=== PATIENT | female | born 1950 | race Caucasian/White ===

== ENCOUNTER → 2022-01-18 | Outpatient (CLI) | payer MEDICARE, SELFPAY ==
--- NOTE | 2022-01-18 | ASPSI_PTH ---
PATIENT: MOLLY BERGMAN LOC: [facility] U#:[id number] AGE/SX: 71/F ROOM: RE01/18/[address]: Dr. Melissa Ordonez MD : 1950 BED: DIS: 01/18/2022 SPEC #: [id number] RECD: 01/19/22 11:50 STATUS: JUSTIN OLEARY #: [id number] ARNOLDO: 01/18/22 00:[address]: Melissa Ordonez DEPT: CYTOLOGY RECD BY: Willi Shabazz Tissues: A - Thyroid gland, NOS B - Thyroid gland, NOS Procedures: Surgery Specimen Level IV Cytospin Fluid Cytology Other HEADER OPERATION: Fine needle aspiration left thyroid PRE-OP DIAGNOSIS: Abnormal ultrasound TISSUE SUBMITTED: A ? FNA left thyroid nodule fluid, B - FNA left thyroid nodule x6 slides DIAGNOSIS CYTOLOGY A. Fine needle aspiration, left thyroid nodule fluid (cytospin and cell block): Negative for malignant cells. See comment. B. Fine needle aspiration, left thyroid nodule (smears): Adequate for evaluation. Negative, consistent with benign follicular nodule/colloid nodule ([place] Category II). Chronic inflammation. See comment. AM:arash 01/20/2022 COMMENT A. The specimen contains rare benign follicular cells and blood. B. The [place] System for thyroid diagnostic categorization was used in the evaluation of this case. The specimen is adequate for evaluation. CYTOLOGY STUDY Slides are reviewed. CYTOLOGY GROSS A - Received is 20 ml of brown cloudy fluid labeled with the patient's name and and designated per the requisition as left thyroid. Submitted for cytology preparation including cell block. B - Received are six smears labeled with the patient's name and designated per the requisition as left thyroid. Submitted for staining. / arash 01/19/2022 TC:3 CPT: 07910 x2, 01291
== END | disposition home or self-care (01) ==
PROVIDERS: Visit Provider Surgery
DX: R93.89 Abnormal findings on diagnostic imaging of other specified body structures (principal); E04.1 Nontoxic single thyroid nodule
CPT/HCPCS: 88108; 88161; 88305

== ENCOUNTER → 2022-12-13 | Outpatient (CLI) | payer MEDICARE, OTHER, SELFPAY ==
--- NOTE | 2022-12-13 | FLU_PTH ---
PATIENT: MOLLY BERGMAN LOC: [facility] U#:[id number] AGE/SX: 72/F ROOM: RE12/13/[address]: Dr. Melissa Ordonez MD : 1950 BED: DIS: 12/13/2022 SPEC #: [id number] RECD: 12/13/22 17:08 STATUS: JUSTIN REQ #: [id number] ARNOLDO: 12/13/22 00:[address]: Melissa Ordonez DEPT: CYTOLOGY RECD BY: Usha Wan ENTERED: 12/14/22 09:23 SP TYPE: Fluid OTHR DR: Dr. Nadja Penny MD Tissues: A - Thyroid gland, NOS B - Thyroid gland, NOS Procedures: Special Stain Group II Surgery Specimen Level IV Cytospin Fluid Cytology Other HEADER OPERATION: Fine needle aspiration right thyroid PRE-OP DIAGNOSIS: Thyroid nodule TISSUE SUBMITTED: A - Right thyroid fluid, B - Right thyroid x6 slides DIAGNOSIS CYTOLOGY A. Right thyroid fluid, fine needle aspiration (cytospin and cell block): Negative for malignant cells. See comment. B. Right thyroid, fine needle aspiration (smears): Consistent with chronic lymphocytic ([place]'s) thyroiditis in the proper clinical context ([place] Category II). Adequate for evaluation. See comment. SJ:rg 12/15/2022 COMMENT A. The specimen consists of a few clusters of follicular cells and lymphocytes. Correlation with clinical, radiologic findings and appropriate follow up are necessary. The [place] System for thyroid diagnostic categorization was used in the evaluation of this case. Please make reference to previous specimen ([id number]), FNA, left thyroid nodule with diagnosis of negative, consistent with benign follicular/colloid nodule. CYTOLOGY STUDY Slides are reviewed. CYTOLOGY GROSS A - Received is 30 ml of light brown cloudy fluid labeled with the patient's name and and designated per the requisition as right thyroid. Submitted for cytology preparation including cell block. B - Received are six smears labeled with the patient's name and designated per the requisition as right thyroid. Submitted for staining. / arash 12/14/2022 TC:3 CPT: 97417 x2, 89222
== END | disposition home or self-care (01) ==
PROVIDERS: PCP Internal Medicine; Visit Provider Surgery
DX: E04.1 Nontoxic single thyroid nodule (principal)
CPT/HCPCS: 88108; 88161; 88305; 88313